=== PATIENT | female | born 1950 | race Caucasian/White ===

== ENCOUNTER 2017-12-22 13:28 | Outpatient (CLI) | payer MEDICARE, BC | END 2017-12-22 13:29 | disposition home or self-care (01) | LOC: BICMRI 13:28 | PROVIDERS: ATTEND Nurse Practitioner Family | DX: M50.122 Cervical disc disorder at C5-C6 level with radiculopathy (principal); M48.02 Spinal stenosis, cervical region | CPT/HCPCS: 72141 ==

== ENCOUNTER 2018-05-17 14:06 | Outpatient (CLI) | payer MEDICARE, BC | END 2018-05-17 14:07 | disposition home or self-care (01) | LOC: BICMAMMO 14:06 | PROVIDERS: ATTEND Internal Medicine | DX: Z12.31 Encounter for screening mammogram for malignant neoplasm of breast (principal); Z80.3 Family history of malignant neoplasm of breast | CPT/HCPCS: 77063; 77067 ==

== ENCOUNTER 2018-12-16 13:46 | Outpatient (CLI) | payer MEDICARE, BC ==
--- NOTE | 2018-12-16 15:18 | BD ---
BONE DENSITOMETRY USING DEXA: HISTORY: Postmenopausal screening for osteoporosis. FINDINGS: Lumbar Spine: BMD (g/cm2) L1 0.944 T-Score: -0.4 Z-Score: 1.4 L2 1.047 T-Score: 0.2 Z-Score: 2.2 L3 1.130 T-Score: 0.5 Z-Score: 2.5 L4 1.153 T-Score: 0.8 Z-Score: 0.0 L1-L4 1.069 T-Score: 0.2 Z-Score: 2.2 Femoral Neck: 0.694 T-Score: -1.4 Z-Score: 0.3 Total Femur: 0.927 T-Score: -0.1 Z-Score: 1.3 The 10-year fracture risk for a major osteoporotic fracture is 9.5% and for a hip fracture is 1.2%. Impression: Osteopenia. POS: RIGO
== END 2018-12-16 13:47 | disposition home or self-care (01) ==
LOC: BICMAMMO 13:46
PROVIDERS: ATTEND Internal Medicine Rheumatology
DX: M81.0 Age-related osteoporosis without current pathological fracture (principal); M85.859 Other specified disorders of bone density and structure, unspecified thigh
CPT/HCPCS: 77080

== ENCOUNTER 2019-05-19 10:46 | Outpatient (CLI) | payer MEDICARE, BC ==
--- NOTE | 2019-05-20 10:30 | MMO ---
Bilateral MAMMO Bilat Screen [facility]. CLINICAL HISTORY: Patient is 69 years old and is seen for screening. The patient has no family history of breast cancer. The patient has no personal history of cancer. The patient has a history of left Stereotatic Biopsy in February, - benign. VIEWS: The views performed were: bilateral craniocaudal with tomosynthesis and bilateral mediolateral oblique with tomosynthesis. FILMS COMPARED: The present examination has been compared to prior imaging studies performed at [facility] on 04/25/2015, 04/28/2016, 05/13/2017 and 05/17/2018. This study has been interpreted with the assistance of computer-aided detection. MAMMOGRAM FINDINGS: There are scattered fibroglandular densities. Finding 1: Benign calcifications are noted bilaterally. Finding 2: There is a stable biopsy clip seen in the left breast. There are no suspicious masses, suspicious calcifications, or new areas of architectural distortion. IMPRESSION: THERE IS NO MAMMOGRAPHIC EVIDENCE OF MALIGNANCY. A ROUTINE FOLLOW-UP MAMMOGRAM IN 1 YEAR IS RECOMMENDED. THE RESULTS OF THIS EXAM WERE SENT TO THE PATIENT. ACR BI-RADS Category 2 - Benign finding MAMMOGRAPHY NOTE: 1. A negative mammogram report should not delay a biopsy if a dominant of clinically suspicious mass is present. 2. Approximately 10% to 15% of breast cancers are not detected by mammography. 3. Adenosis and dense breasts may obscure an underlying neoplasm. Reported by: HENRY GARCÍA MD Electonically Signed: [id number]
== END 2019-05-19 10:47 | disposition home or self-care (01) ==
LOC: BICMAMMO 10:46
PROVIDERS: ATTEND Internal Medicine
DX: Z12.31 Encounter for screening mammogram for malignant neoplasm of breast (principal); Z91.89 Other specified personal risk factors, not elsewhere classified
CPT/HCPCS: 77063; 77067

== ENCOUNTER 2020-05-22 13:59 | Outpatient (CLI) | payer MEDICARE, BC ==
--- NOTE | 2020-05-22 15:25 | MMO ---
Bilateral MAMMO Bilat Screen [facility]. CLINICAL HISTORY: Patient is 70 years old and is seen for screening. The patient has no family history of breast cancer. The patient has no personal history of cancer. The patient has a history of left Stereotatic Biopsy in February, - benign. VIEWS: The views performed were: bilateral craniocaudal with tomosynthesis and bilateral mediolateral oblique with tomosynthesis. FILMS COMPARED: The present examination has been compared to prior imaging studies performed at [facility] on 04/28/2016, 05/13/2017, 05/17/2018 and 05/19/2019. This study has been interpreted with the assistance of computer-aided detection. MAMMOGRAM FINDINGS: There are scattered fibroglandular densities. Benign calcifications are noted bilaterally. Left biopsy clip. There are no suspicious masses, suspicious calcifications, or new areas of architectural distortion. IMPRESSION: THERE IS NO MAMMOGRAPHIC EVIDENCE OF MALIGNANCY. A ROUTINE FOLLOW-UP MAMMOGRAM IN 1 YEAR IS RECOMMENDED. THE RESULTS OF THIS EXAM WERE SENT TO THE PATIENT. ACR BI-RADS Category 2 - Benign finding MAMMOGRAPHY NOTE: 1. A negative mammogram report should not delay a biopsy if a dominant of clinically suspicious mass is present. 2. Approximately 10% to 15% of breast cancers are not detected by mammography. 3. Adenosis and dense breasts may obscure an underlying neoplasm. Reported by: ANTELMO RAY MD Electonically Signed: [id number]
== END 2020-05-22 14:00 | disposition home or self-care (01) ==
LOC: BICMAMMO 13:59
PROVIDERS: ATTEND Internal Medicine
DX: Z12.31 Encounter for screening mammogram for malignant neoplasm of breast (principal); Z91.89 Other specified personal risk factors, not elsewhere classified
CPT/HCPCS: 77063; 77067

== ENCOUNTER 2020-07-21 23:18 | Emergency (ER) | payer MEDICARE, BC ==
[2020-07-22 01:50] LABS: #Basophils 0.1 thou/uL (0.0-0.2); #Eosinphils 0.2 thou/uL (0.0-0.7); #Lymphocytes 1.7 thou/uL (1.20-3.40); #Monocytes 0.8 thou/uL (0.11-0.59); %Basophils 0.5 % (0.0-1.0); %Eosinophils 1.6 % (0.0-10.0); %Lymphocytes 13.3 % (21.0-51.0); %Monocytes 6.6 % (0.0-10.0); %Neutrophils 78.1 % (42.0-75.0); Hemoglobin 14.4 g/dL (12.0-16.0); Mean Corpuscular HGB CONC 33.1 g/dL (32.0-36.0); Mean Corpuscular Hemoglobin 30.2 pg (27.0-31.0); Mean Platelet Volume 8.7 fL (7.4-10.4); Platelet Count 154 thou/uL (130-400); RBC Distribution Width 12.3 % (11.5-14.5); Red Blood Cell (RBC) Count 4.77 mill/uL (4.20-5.40); White Blood Cell (WBC) Count 12.9 thou/uL (4.8-10.8)
[2020-07-22 02:10] LABS: ALT (SGPT) 19 U/L (8-55); AST (SGOT) 20 U/L (5-34); Albumin 3.9 g/dL (3.4-4.8); Alkaline Phosphatase 105 U/L (40-110); Anion Gap 15 mmol/L (10-20); BUN (Urea Nitrogen) 38 mg/dL (9.8-20.1); Bilirubin, Total 0.3 mg/dL (0.2-1.2); Calc. Creatinine Clearance 0 mL/min (70-130); Calcium 9.8 mg/dL (7.8-10.44); Carbon Dioxide 24 mmol/L (23-31); Chloride 106 mmol/L (98-107); Globulin 2.6 g/dL (2.4-3.5); Glucose 129 mg/dL (80-115); Lipase 11 U/L (8-78); Potassium 4.6 mmol/L (3.5-5.1); Protein, Total 6.5 g/dL (6.0-8.3); Sodium 140 mmol/L (136-145)
[2020-07-22] MEDS ORDERED: Ondansetron PF 4 MG/2 ML Vial ONE (02:40)
[2020-07-22] MEDS ORDERED: Morphine 4 MG/ML VIAL ONE (02:40)
[2020-07-22 04:50] LABS: Bacteria/HPF None Seen HPF (None Seen); Bilirubin Negative (Negative); Blood, Urine 2+ (Negative); Clarity Extra Turbid (Clear); Glucose, Urine (Dipstick) Normal (Negative); Ketone, Urine Negative (Negative); Leukocyte 75 Leu/uL (Negative); Nitrite Negative (Negative); Protein, Urine (Dipstick) Negative (Neg-Trace); RBC/HPF 21-50 HPF (0-3); Specific Gravity, Urine 1.016 (1.002-1.036); Squamous Epithelial None Seen HPF (0-3); Urobilinogen Normal mg/dL (Less than 2); WBC/HPF None Seen HPF (0-3)
[2020-07-22] MEDS ORDERED: Iopamidol-370 76% 500 ML 1 ML ONE (11:39)
--- NOTE | 2020-07-22 11:54 | CT ---
PRELIMINARY REPORT/[facility]/EMERGENCY AFTER HOURS PROCEDURE: EXAM: CT Abdomen and Pelvis with Intravenous Contrast CLINICAL HISTORY: ABD PAIN TECHNIQUE: Axial computed tomography images of the abdomen and pelvis with intravenous contrast. CONTRAST: With; ISOVUE 370,60mL COMPARISON: None provided. FINDINGS: LUNG BASES: No basilar airspace consolidation or pleural effusion. LIVER: Fatty infiltration of the liver. No enhancing liver masses are seen. The portal vein is rivas nt. GALLBLADDER AND BILE DUCTS: Unremarkable. No calcified stone. No ductal dilation. PANCREAS: Unremarkable. SPLEEN: Unremarkable. ADRENAL GLANDS: Unremarkable. KIDNEYS, URETERS, AND BLADDER: No right-sided hydronephrosis is identified. Nonobstructing left kidn ey stones. The largest one measures 9 mm. Moderate left hydronephrosis and hydroureter. There is 5 mm stone in the distal left ureter. No bladder calculi are identified. STOMACH AND BOWEL: No obstruction. No wall thickening. No CT evidence of colitis or acute diverticuli tis. APPENDIX: Appendix not clearly visualized in the right lower quadrant. PERITONEUM: No free fluid. No free air. LYMPH NODES: No lymphadenopathy. REPRODUCTIVE: Unremarkable as visualized. VASCULATURE: No aortic aneurysm. BONES: No fracture or suspicious osseous abnormality. Degenerative changes of the lumbar spine. ABDOMINAL WALL AND SOFT TISSUES: Unremarkable. IMPRESSION: Nonobstructing left kidney stones. Moderate left hydronephrosis and hydroureter due to a 5 mm obstructing stone in the distal left ureter. ELECTRONICALLY SIGNED BY: Cornelio Loyola MD Jul 22, 2020 4:39:49 AM [employer] M[employer] OPERATOR FINAL REPORT CT ABDOMEN AND PELVIS WITH IV CONTRAST: Liver, spleen, and pancreas unremarkable. Left hydronephrosis. Obstructing calculus in the distal left ureter measuring in the 5 mm range. No nobstructing calculus in the upper collecting structures of the left kidney. I am in agreement with the preliminary report. POS: AGW
== END 2020-07-22 05:20 | disposition home or self-care (01) ==
LOC: ERS 23:18
DX: N13.2 Hydronephrosis with renal and ureteral calculous obstruction (principal); N28.9 Disorder of kidney and ureter, unspecified; D72.829 Elevated white blood cell count, unspecified; I10 Essential (primary) hypertension; M79.7 Fibromyalgia
CPT/HCPCS: 36415; 74177; 80053; 81003; 81015; 83690; 85025; 87086; 96374; 96375; J2270; J2405; Q9967

== ENCOUNTER 2021-01-24 18:49 | Emergency (ER) | payer MEDICARE, BC ==
[2021-01-24] MEDS ORDERED: Ondansetron PF 4 MG/2 ML Vial ONE (19:35)
[2021-01-24] MEDS ORDERED: Morphine 4 MG/ML VIAL ONE ×2 (19:35→22:30)
[2021-01-24 19:46] LABS: #Basophils 0.1 thou/uL (0.0-0.2); #Eosinphils 0.3 thou/uL (0.0-0.7); #Lymphocytes 1.8 thou/uL (1.20-3.40); #Monocytes 0.9 thou/uL (0.11-0.59); %Basophils 0.5 % (0.0-1.0); %Eosinophils 2.7 % (0.0-10.0); %Lymphocytes 15.1 % (21.0-51.0); %Monocytes 7.3 % (0.0-10.0); %Neutrophils 74.4 % (42.0-75.0); Hemoglobin 14.1 g/dL (12.0-16.0); Mean Corpuscular HGB CONC 35.3 g/dL (32.0-36.0); Mean Corpuscular Hemoglobin 31.8 pg (27.0-31.0); Mean Corpuscular Volume 90.2 fL (78.0-98.0); Mean Platelet Volume 8.5 fL (7.4-10.4); Platelet Count 149 thou/uL (130-400); RBC Distribution Width 12.5 % (11.5-14.5); Red Blood Cell (RBC) Count 4.43 mill/uL (4.20-5.40); White Blood Cell (WBC) Count 12.1 thou/uL (4.8-10.8)
[2021-01-24 20:02] LABS: Albumin 3.8 g/dL (3.4-4.8)
[2021-01-24 20:04] LABS: Calcium 9.3 mg/dL (7.8-10.44); Chloride 108 mmol/L (98-107); Sodium 138 mmol/L (136-145)
[2021-01-24 20:05] LABS: Globulin 2.6 g/dL (2.4-3.5); Glucose 106 mg/dL (80-115); Protein, Total 6.4 g/dL (5.8-8.1)
[2021-01-24 20:06] LABS: Anion Gap 12 mmol/L (10-20); Carbon Dioxide 22 mmol/L (23-31)
[2021-01-24 20:07] LABS: Bilirubin, Total 0.3 mg/dL (0.2-1.2)
[2021-01-24 20:08] LABS: Alkaline Phosphatase 114 U/L (40-110); Calc. Creatinine Clearance 0 mL/min (70-130)
[2021-01-24 20:09] LABS: BUN (Urea Nitrogen) 42 mg/dL (9.8-20.1)
[2021-01-24 20:10] LABS: AST (SGOT) 19 U/L (5-34)
[2021-01-24 20:11] LABS: Lipase 15 U/L (8-78)
[2021-01-24 21:41] LABS: Bilirubin Negative (Negative); Blood, Urine Trace (Negative); Glucose, Urine (Dipstick) Negative (Negative); Ketone, Urine Negative (Negative); Leukocyte Negative (Negative); Nitrite Negative (Negative); Protein, Urine (Dipstick) Negative (Neg-Trace); Specific Gravity, Urine 1.015 (1.005-1.030); Urobilinogen 0.2 mg/dL (Less than 2)
[2021-01-24 21:42] LABS: Clarity Clear (Clear)
[2021-01-24 21:47] LABS: Bacteria/HPF None Seen HPF (None Seen); Mucous/LPF Rare LPF (<2+); Squamous Epithelial 0-3 HPF (0-3); WBC/HPF 0-3 HPF (0-3)
[2021-01-24 22:41] LABS: ALT (SGPT) 15 U/L (8-55)
== END 2021-01-24 22:50 | disposition home or self-care (01) ==
LOC: ERS 18:49
DX: N13.2 Hydronephrosis with renal and ureteral calculous obstruction (principal); I10 Essential (primary) hypertension; Z79.899 Other long term (current) drug therapy
CPT/HCPCS: 36415; 74176; 80053; 81003; 83605; 83690; 85025; 96374; 96375; 96376; J2270; J2405

== ENCOUNTER 2021-04-23 14:43 | Outpatient (CLI) | payer MEDICARE, BC | END 2021-04-23 14:44 | disposition home or self-care (01) | LOC: BICMAMMO 14:43 | PROVIDERS: ATTEND Internal Medicine Rheumatology | DX: M81.0 Age-related osteoporosis without current pathological fracture (principal); M85.852 Other specified disorders of bone density and structure, left thigh; M85.851 Other specified disorders of bone density and structure, right thigh | CPT/HCPCS: 77080 ==

== ENCOUNTER 2021-05-24 14:21 | Outpatient (CLI) | payer MEDICARE, BC | END 2021-05-24 14:22 | disposition home or self-care (01) | LOC: BICMAMMO 14:21 | PROVIDERS: ATTEND Internal Medicine | DX: Z12.31 Encounter for screening mammogram for malignant neoplasm of breast (principal); Z91.89 Other specified personal risk factors, not elsewhere classified | CPT/HCPCS: 77063; 77067 ==

== ENCOUNTER 2021-12-10 13:24 | Outpatient (CLI) | payer MEDICARE, BC | END 2021-12-10 13:25 | disposition home or self-care (01) | LOC: MRI 13:24 | PROVIDERS: ATTEND Anesthesiology Pain Medicine | DX: M48.062 Spinal stenosis, lumbar region with neurogenic claudication (principal); M47.816 Spondylosis without myelopathy or radiculopathy, lumbar region; M51.36 Other intervertebral disc degeneration, lumbar region; M51.26 Other intervertebral disc displacement, lumbar region | CPT/HCPCS: 72148 ==

== ENCOUNTER 2024-01-28 15:01 | Outpatient (CLI) | payer MEDICARE | END 2024-01-28 15:02 | disposition home or self-care (01) | LOC: BICMAMMO 15:01 | PROVIDERS: ATTEND Internal Medicine Rheumatology | DX: M81.0 Age-related osteoporosis without current pathological fracture (principal); M85.851 Other specified disorders of bone density and structure, right thigh; M85.852 Other specified disorders of bone density and structure, left thigh | CPT/HCPCS: 77080 ==

== ENCOUNTER 2024-02-08 06:01 | Inpatient (IN) | payer MEDICARE ==
[2024-02-08 07:08] LABS: Influenza A by NAA Not Detected (NotDetected); Influenza B by NAA Not Detected (NotDetected); SARS-CoV-2 NAA Rapid Test Not Detected (NotDetected)
[2024-02-08 07:33] LABS: ALT (SGPT) 14 U/L (8-55); AST (SGOT) 15 U/L (5-34); Albumin 2.8 g/dL (3.4-4.8); Alkaline Phosphatase 79 U/L (40-110); Anion Gap 16 mmol/L (10-20); BUN (Urea Nitrogen) 30 mg/dL (9.8-20.1); Bilirubin, Total 0.7 mg/dL (0.2-1.2); Calc. Creatinine Clearance 0 mL/min (70-130); Calcium 9.5 mg/dL (7.8-10.44); Carbon Dioxide 18 mmol/L (23-31); Chloride 105 mmol/L (98-107); Estimated GFR 27; Globulin 3.5 g/dL (2.4-3.5); Glucose 129 mg/dL (83-110); Lipase 5 U/L (8-78); Magnesium 1.6 mg/dL (1.6-2.6); Potassium 3.9 mmol/L (3.5-5.1); Protein, Total 6.3 g/dL (5.8-8.1); Sodium 135 mmol/L (136-145)
[2024-02-08 07:34] LABS: #Basophils 0.03 10x3/uL (0.0-0.2); #Eosinphils Less than 0.03 10x3/uL (0.0-0.7); %Basophils 0.2 % (0.0-1.0); %Eosinophils 0.1 % (0.0-10.0); %Lymphocytes 3.5 % (21.0-51.0); %Monocytes 10.3 % (0.0-10.0); %Neutrophils 84.1 % (42.0-75.0); Hematocrit 36.7 % (36.0-47.0); Hemoglobin 12.7 g/dL (12.0-16.0); Mean Corpuscular HGB CONC 34.6 g/dL (32.0-36.0); Mean Corpuscular Hemoglobin 31.1 pg (27.0-31.0); Platelet Count 132 10x3/uL (130-400); RBC Distribution Width 13.2 % (11.5-14.5); Red Blood Cell (RBC) Count 4.08 mill/uL (4.20-5.40)
[2024-02-08 07:37] LABS: Troponin I 0.011 ng/mL (< 0.028)
[2024-02-08] MEDS ORDERED: Cefepime 2 GM VIAL ONE ×3 (07:54→13:43)
[2024-02-08] MEDS ORDERED: Sodium Chloride 0.9% 100 ML ONE ×3 (07:54→13:43)
[2024-02-08] MEDS ORDERED: Acetaminophen 325 MG TAB PO PRN (10:44)
[2024-02-08] MEDS ORDERED: Senokot S 8.6-50 MG TAB PO PRN (10:44)
[2024-02-08] MEDS: Cefepime 2 GM in Sodium Chloride 0.9% 100 ML IVPB SCH (13:27)
[2024-02-08] MEDS: Vancomycin (BATCH) 1.5 GM in Premix 1 BAG IVPB SCH (13:27)
[2024-02-08] MEDS: Sodium Chloride 0.9% 1,000 ML IV SCH (13:59)
[2024-02-08] MEDS ORDERED: Vancomycin Dose by Levels Sliding Scale (Wt 71-99) FS SCH (15:00)
[2024-02-08] MEDS ORDERED: HYDROcodone/Acetaminophen 5/325 mg Tablet ONE (16:39)
[2024-02-08] MEDS: HYDROcodone/Acetaminophen 5/325 mg Tablet PO PRN (17:02)
[2024-02-08 19:21] VITALS: BMI 30.4
[2024-02-08] MEDS ORDERED: Vancomycin 1 GM in Sodium Chloride 0.9% 250 ML 300 ML IVPB SCH (21:00)
[2024-02-08] MEDS: Cefepime 1 GM in Sodium Chloride 0.9% 100 ML IVPB SCH (21:00)
[2024-02-08] MEDS: Topiramate 25 MG TAB PO SCH (21:32)
[2024-02-08] MEDS: Atenolol 25 MG TAB PO SCH (21:32)
[2024-02-08] MEDS: DULoxetine 20 MG CAP PO SCH (21:33)
[2024-02-08] MEDS: traMADol HCl 50 MG TAB PO PRN (21:34)
[2024-02-09 05:13] LABS: #Basophils 0.04 10x3/uL (0.0-0.2); %Basophils 0.3 % (0.0-1.0); %Lymphocytes 6.4 % (21.0-51.0); %Monocytes 11.4 % (0.0-10.0); %Neutrophils 79.8 % (42.0-75.0); Hematocrit 34.4 % (36.0-47.0); Hemoglobin 11.5 g/dL (12.0-16.0); Mean Corpuscular HGB CONC 33.4 g/dL (32.0-36.0); Mean Corpuscular Hemoglobin 30.8 pg (27.0-31.0); Mean Corpuscular Volume 92.2 fL (78.0-98.0); Mean Platelet Volume 11.2 fL (7.4-10.4); Platelet Count 115 10x3/uL (130-400); RBC Distribution Width 13.1 % (11.5-14.5); Red Blood Cell (RBC) Count 3.73 mill/uL (4.20-5.40)
[2024-02-09 05:26] LABS: Anion Gap 14 mmol/L (10-20); BUN (Urea Nitrogen) 26 mg/dL (9.8-20.1); Calc. Creatinine Clearance 42 mL/min (70-130); Calcium 8.9 mg/dL (7.8-10.44); Carbon Dioxide 16 mmol/L (23-31); Chloride 111 mmol/L (98-107); Estimated GFR 35; Glucose 106 mg/dL (83-110); Potassium 3.6 mmol/L (3.5-5.1); Sodium 137 mmol/L (136-145)
[2024-02-09] MEDS: DULoxetine 20 MG CAP PO SCH (09:57)
[2024-02-09] MEDS: Pantoprazole DR 40 MG TAB PO SCH (09:57)
[2024-02-09] MEDS: Enoxaparin 30 MG (0.3 mL) SYRINGE SC SCH (09:58)
[2024-02-09 11:10] LABS: Vancomycin, Trough 9.8 ug/mL
[2024-02-09] MEDS: Cyclobenzaprine 10 MG TAB PO SCH (21:14)
[2024-02-09] MEDS: traZODone HCl 50 MG TAB PO SCH (21:17)
[2024-02-10 04:26] LABS: Bacteria/HPF 1+ HPF (None Seen); Bilirubin Negative (Negative); Blood, Urine 1+ (Negative); CAUTI Indications for Culture Fever or rigors; Clarity Clear (Clear); Glucose, Urine (Dipstick) Normal (Negative); Ketone, Urine Negative (Negative); Leukocyte 500 Leu/uL (Negative); Nitrite Negative (Negative); Protein, Urine (Dipstick) 20 mg/dL (Neg-Trace); Specific Gravity, Urine 1.008 (1.002-1.036); Squamous Epithelial 0-3 HPF (0-3); Urobilinogen Normal mg/dL (Less than 2); WBC/HPF 21-50 HPF (0-3); pH, Urine 6.5 (5.0-9.0)
[2024-02-10 04:27] LABS: Actual Bicarbonate (HCO3v) 16.6 mEq/L (22-28); Base Excess -7.7 mEq/L (-2.0 to +3.0); Chloride (VBG) 109 mmol/L (98-106); Hematocrit-VBG 34 % (36.0-47.0); Hemoglobin (Hb) 11.7 g/dL (11.7-16.1); Potassium (VBG) 3.43 mmol/L (3.70-5.30); Sodium 139 mmol/L (133-146); pH (venous) 7.361 (7.32-7.43)
[2024-02-10 04:27] LABS: Urine Culture Reflex Yes Yes
[2024-02-10 05:12] LABS: ALT (SGPT) 14 U/L (8-55); AST (SGOT) 18 U/L (5-34); Albumin 2.4 g/dL (3.4-4.8); Alkaline Phosphatase 79 U/L (40-110); Anion Gap 13 mmol/L (10-20); BUN (Urea Nitrogen) 26 mg/dL (9.8-20.1); Bilirubin, Direct 0.2 mg/dL (0.1-0.3); Bilirubin, Total 0.6 mg/dL (0.2-1.2); Calc. Creatinine Clearance 46 mL/min (70-130); Calcium 9.1 mg/dL (7.8-10.44); Carbon Dioxide 16 mmol/L (23-31); Chloride 112 mmol/L (98-107); Estimated GFR 39; Glucose 92 mg/dL (83-110); Magnesium 1.7 mg/dL (1.6-2.6); Potassium 3.2 mmol/L (3.5-5.1); Protein, Total 6.1 g/dL (5.8-8.1); Sodium 138 mmol/L (136-145)
[2024-02-10] MEDS: Levothyroxine 150 MCG TAB PO SCH (06:10)
[2024-02-10] MEDS: Pantoprazole DR 40 MG TAB PO SCH (08:16)
[2024-02-10] MEDS: Ondansetron PF 4 MG/2 ML Vial IVP PRN (08:17)
[2024-02-10 08:29] LABS: #Basophils 0.07 10x3/uL (0.0-0.2); %Basophils 0.4 % (0.0-1.0); %Eosinophils 1.9 % (0.0-10.0); %Lymphocytes 9.2 % (21.0-51.0); %Monocytes 10.8 % (0.0-10.0); Hematocrit 35.3 % (36.0-47.0); Hemoglobin 12.2 g/dL (12.0-16.0); Mean Corpuscular HGB CONC 34.6 g/dL (32.0-36.0); Mean Corpuscular Hemoglobin 30.3 pg (27.0-31.0); Mean Corpuscular Volume 87.6 fL (78.0-98.0); Platelet Count 134 10x3/uL (130-400); RBC Distribution Width 13.2 % (11.5-14.5); Red Blood Cell (RBC) Count 4.03 mill/uL (4.20-5.40)
[2024-02-10] MEDS ORDERED: Enoxaparin 40 MG (0.4 mL) SYRINGE SC SCH (09:00)
[2024-02-10] MEDS ORDERED: Morphine 4 MG/ML VIAL SLOW IVP PRN (09:26)
[2024-02-10] MEDS ORDERED: Electrolyte Replacement Protocol 1 EACH FS SCH (09:30)
[2024-02-10] MEDS ORDERED: Electrolyte Replacement Protocol FS PRN (10:15)
[2024-02-10] MEDS: HYDROcodone/Acetaminophen 5/325 mg Tablet PO PRN (10:39)
[2024-02-10] MEDS: Venlafaxine HCl XR 75 MG CAP PO SCH (10:40)
[2024-02-10] MEDS: Multivitamin W/ Minerals 1 TAB PO SCH (10:40)
[2024-02-10] MEDS: Magnesium 2 GM/50 ML(in water) 2 GM in Premix 1 BAG IVPB SCH ×2 (12:01→18:09)
[2024-02-10] MEDS ORDERED: PROPOFOL 20 ML ONE (12:30)
[2024-02-10] MEDS ORDERED: fentaNYL PF 100 MCG/2 ML SYRINGE ONE (12:30)
[2024-02-10] MEDS ORDERED: Lidocaine 1% PF 5 ML VIAL ONE (12:30)
[2024-02-10] MEDS ORDERED: Iopamidol 15 ML ONE (12:53)
[2024-02-10] MEDS ORDERED: Albuterol HFA (OR) 200 PUFF INH ONE (13:50)
[2024-02-10] MEDS ORDERED: Iopamidol-370 76% 500 ML MDV (1 ML CHARGE) ONE (14:58)
[2024-02-10] MEDS: Potassium Chloride 20 MEQ in Premix 1 BAG IVPB SCH (15:02)
[2024-02-10] MEDS: Potassium Chloride 20 MEQ TAB PO SCH (17:03)
[2024-02-11 04:45] LABS: #Basophils 0.04 10x3/uL (0.0-0.2); %Basophils 0.3 % (0.0-1.0); %Eosinophils 3.6 % (0.0-10.0); %Lymphocytes 8.6 % (21.0-51.0); %Monocytes 10.7 % (0.0-10.0); %Neutrophils 74.6 % (42.0-75.0); Hematocrit 35.2 % (36.0-47.0); Hemoglobin 11.9 g/dL (12.0-16.0); Mean Corpuscular HGB CONC 33.8 g/dL (32.0-36.0); Mean Corpuscular Hemoglobin 30.7 pg (27.0-31.0); Mean Platelet Volume 10.5 fL (7.4-10.4); Platelet Count 151 10x3/uL (130-400); RBC Distribution Width 13.4 % (11.5-14.5); Red Blood Cell (RBC) Count 3.87 mill/uL (4.20-5.40)
[2024-02-11 05:06] LABS: Anion Gap 14 mmol/L (10-20); BUN (Urea Nitrogen) 24 mg/dL (9.8-20.1); Calc. Creatinine Clearance 51 mL/min (70-130); Calcium 9.1 mg/dL (7.8-10.44); Carbon Dioxide 15 mmol/L (23-31); Chloride 114 mmol/L (98-107); Estimated GFR 43; Glucose 78 mg/dL (83-110); Magnesium 2.4 mg/dL (1.6-2.6); Potassium 4.2 mmol/L (3.5-5.1); Sodium 139 mmol/L (136-145)
[2024-02-12 07:19] LABS: Anion Gap 11 mmol/L (10-20); BUN (Urea Nitrogen) 22 mg/dL (9.8-20.1); Calc. Creatinine Clearance 61 mL/min (70-130); Calcium 8.8 mg/dL (7.8-10.44); Carbon Dioxide 17 mmol/L (23-31); Chloride 109 mmol/L (98-107); Estimated GFR 52; Glucose 89 mg/dL (83-110); Potassium 3.4 mmol/L (3.5-5.1); Sodium 134 mmol/L (136-145)
[2024-02-12 07:27] LABS: Hematocrit 33.6 % (36.0-47.0); Hemoglobin 11.6 g/dL (12.0-16.0); Mean Corpuscular HGB CONC 34.5 g/dL (32.0-36.0); Mean Corpuscular Hemoglobin 30.5 pg (27.0-31.0); Mean Corpuscular Volume 88.4 fL (78.0-98.0); Mean Platelet Volume 10.3 fL (7.4-10.4); Platelet Count 166 10x3/uL (130-400); RBC Distribution Width 13.4 % (11.5-14.5)
[2024-02-12] MEDS ORDERED: hydrALAZINE 20 MG/ML VIAL SLOW IVP PRN (08:13)
[2024-02-12] MEDS: Potassium Chloride 20 MEQ TAB PO SCH (08:39)
[2024-02-12] MEDS: Magnesium 2 GM/50 ML(in water) 2 GM in Premix 1 BAG IVPB SCH (08:40)
[2024-02-12 09:24] LABS: Band 7 % (5-11); Burr Cells SLIGHT = 2-5 cells HPF (0-1); Eosinophils 3 % (0-10); Lymphocytes 6 % (21-51); Metamyelocyte 1 % (0-0); Monocytes 11 % (0-10); Neutrophil 70 % (42-75); Platelet Adequacy Comment Platelets Normal; Polychromasia SLIGHT = 2-3 cells HPF (0-2); Reactive Lymphocytes 1 % (0-10); Schistocytes SLIGHT = 2-5 cells HPF (0-1)
[2024-02-12] MEDS: Amlodipine 5 MG TAB PO SCH (09:27)
[2024-02-12 17:21] VITALS: BP 132/79; TEMP 98.1
== END 2024-02-12 17:17 | disposition home health service (06) | DRG 854 ==
LOC: ERS 06:01 → ERHOLD 10:26 → 2NO 18:06 → T4-B 02-11 18:19
PROVIDERS: ADMIT Family Medicine; ATTEND Internal Medicine
PROC: 0T778DZ Dilation of Left Ureter with Intraluminal Device, Via Natural or Artificial Opening Endoscopic (ICD-10-PCS; principal; 2024-02-10)
DX: A41.4 Sepsis due to anaerobes (principal); E87.20 Acidosis, unspecified; N17.9 Acute kidney failure, unspecified; N13.2 Hydronephrosis with renal and ureteral calculous obstruction; J90 Pleural effusion, not elsewhere classified; M79.7 Fibromyalgia; I10 Essential (primary) hypertension; E03.9 Hypothyroidism, unspecified; G89.4 Chronic pain syndrome; F41.9 Anxiety disorder, unspecified; E86.0 Dehydration; E87.6 Hypokalemia; F32.A Depression, unspecified; Z88.5 Allergy status to narcotic agent; Z88.1 Allergy status to other antibiotic agents; Z88.8 Allergy status to other drugs, medicaments and biological substances; Z79.899 Other long term (current) drug therapy; Z79.51 Long term (current) use of inhaled steroids; Z79.890 Hormone replacement therapy; Z90.49 Acquired absence of other specified parts of digestive tract; Z90.710 Acquired absence of both cervix and uterus
CPT/HCPCS: 36415; 36416; 71045; 71250; 74018; 74178; 74420; 80048; 80053; 80076; 80202; 81001; 82805; 83605; 83690; 83735; 83880; 84484; 85025; 87040; 87077; 87086; 87149; 87186; 93005; 93010; 93306; C2617; J0692; J1650; J2405; J2704; J3370; J3475; J3480; J3490; J7050; Q9967

== ENCOUNTER 2024-02-25 11:28 | Outpatient (CLI) | payer MEDICARE ==
[2024-02-25 12:47] LABS: Hematocrit 41.9 % (34.9-44.5); Hemoglobin 14.4 g/dL (12.0-15.5); Mean Corpuscular HGB CONC 34.4 g/dL (32.0-36.0); Mean Corpuscular Hemoglobin 30.8 pg (27.0-33.0); Mean Corpuscular Volume 89.7 fL (81.6-98.3); Mean Platelet Volume 10.5 fL (7.4-10.4); Platelet Count 290 10x3/uL (150-450); Red Blood Cell (RBC) Count 4.67 10x6/uL (3.90-5.03)
[2024-02-25 12:48] LABS: Bilirubin Neg (Negative); Blood, Urine 250 (Negative); Clarity Cloudy (Clear); Glucose, Urine (Dipstick) Normal (Negative); Ketone, Urine 5 mg/dL (Negative); Leukocyte 500 (Negative); Nitrite Negative (Negative); Protein, Urine (Dipstick) 100 mg/dl (Neg-Trace); Urobilinogen Normal mg/dL (Less than 2)
[2024-02-25 13:04] LABS: INR-International Normal Ratio 1.1; PTT 27.1 sec (22.0-33.0); Prothrombin Time 11.4 sec (9.5-12.1)
[2024-02-25 13:05] LABS: RBC/HPF Greater than 50 HPF (0-3); Squamous Epithelial 0-3 HPF (0-3); WBC/HPF Greater than 50 HPF (0-3)
[2024-02-25 13:06] LABS: Bacteria/HPF 1+ HPF (None Seen); Renal Epithelial 0-3 HPF (None Seen); Transitional Epithelial 0-3 HPF (None Seen)
[2024-02-25 13:09] LABS: Anion Gap 15 mmol/L (10-20); BUN (Urea Nitrogen) 37 mg/dL (9.8-20.1); Calc. Creatinine Clearance 0 mL/min (70-130); Calcium 10.7 mg/dL (7.8-10.44); Carbon Dioxide 26 mmol/L (23-31); Chloride 102 mmol/L (98-107); Estimated GFR 23; Glucose 109 mg/dL (83-110); Potassium 3.8 mmol/L (3.5-5.1); Sodium 139 mmol/L (136-145)
== END 2024-02-25 11:29 | disposition home or self-care (01) ==
LOC: LABBT 11:28
PROVIDERS: ATTEND Urology
DX: Z01.812 Encounter for preprocedural laboratory examination (principal); N20.1 Calculus of ureter
CPT/HCPCS: 80048; 81001; 85027; 85610; 85730; 87086

== ENCOUNTER 2024-03-10 08:30 | Day surgery (SDC) | payer MEDICARE ==
[2024-02-25 12:19] VITALS: BMI 29.9
[2024-03-10] MEDS ORDERED: LevoFLOXacin D5W 500 mg (100 mL) BAG ONE (10:07)
[2024-03-10] MEDS ORDERED: PROPOFOL 20 ML ONE (12:11)
[2024-03-10] MEDS ORDERED: Ondansetron PF 4 MG/2 ML Vial ONE (12:11)
[2024-03-10] MEDS ORDERED: Lidocaine 1% PF 5 ML VIAL ONE (12:11)
[2024-03-10] MEDS ORDERED: fentaNYL PF 100 MCG/2 ML SYRINGE ONE (12:11)
[2024-03-10] MEDS ORDERED: Rocuronium Bromide 10 MG/ML (10ML VIAL) ONE (13:10)
[2024-03-10] MEDS ORDERED: SUGAMMADEX SODIUM 200 MG/2 ML VIAL ONE (14:08)
[2024-03-10] MEDS ORDERED: Phenazopyridine HCl 100 MG TAB ONE (14:58)
[2024-03-10] MEDS ORDERED: Oxybutynin 5 MG TAB ONE (14:58)
[2024-03-10] MEDS ORDERED: fentaNYL 50 mcg/mL 1 mL Vial ONE (15:05)
== END 2024-03-10 16:21 | disposition home or self-care (01) ==
LOC: SDC 08:30
PROVIDERS: ATTEND Urology
PROC: 0TC78ZZ Extirpation of Matter from Left Ureter, Via Natural or Artificial Opening Endoscopic (ICD-10-PCS; principal; 2024-03-10)
PROC: 0T778DZ Dilation of Left Ureter with Intraluminal Device, Via Natural or Artificial Opening Endoscopic (ICD-10-PCS; 2024-03-10)
DX: N20.2 Calculus of kidney with calculus of ureter (principal)
CPT/HCPCS: 52356; 74420; 82365; C1713; C1747; C1769; C2617; J1956; J2405; J2704; J3010; 88300

== ENCOUNTER 2024-06-08 14:09 | Outpatient (CLI) | payer MEDICARE | END 2024-06-08 14:10 | disposition home or self-care (01) | LOC: BICULT 14:09 | PROVIDERS: ATTEND Urology | DX: N20.0 Calculus of kidney (principal) | CPT/HCPCS: 76770 ==